=== PATIENT | female | born 1990 | race Caucasian/White ===

== ENCOUNTER 2023-06-06 14:55 | Outpatient (REF) | payer MEDICAID, SELFPAY ==
[2023-06-06 15:16] LABS: MANUAL DIFF FLAG NO
[2023-06-06 15:26] LABS: Basophils Percent Auto 0.5 % (0-2); Eosinophils Absolute Auto 0.3 X10*3/uL (0.0-0.4); Eosinophils Percent Auto 3.8 % (0-4); Hematocrit 41.8 % (37.0-47.0); Hemoglobin 14.1 g/dl (12.0-16.0); Imm Gran Abs Auto 0.01 X10*3/uL (0.00-0.03); Imm Gran Pct Auto 0.2 % (0.0-0.4); Lymphocytes Absolute Auto 2.2 X10*3/uL (1.2-4.9); Lymphocytes Percent Auto 33.8 % (20-40); Mean Corpuscular HGB Conc 33.7 g/dl (31.0-35.0); Mean Corpuscular Hemoglobin 32.1 pg (27.0-33.0); Mean Corpuscular Volume 95.2 fL (80.0-98.0); Mean Platelet Volume 9.5 fL (9.4-12.3); Monocytes Absolute Auto 0.5 X10*3/uL (0.1-1.2); Monocytes Percent Auto 7.2 % (2-11); Neutrophils Absolute Auto 3.5 x10*3/uL (2.0-8.3); Neutrophils Percent Auto 54.5 % (45-73); Platelet Count 283 X10*3/uL (160-400); Red Blood Count 4.39 X10*6/uL (4.20-5.50); Red Cell Distribution Width 11.9 % (11.0-16.0); White Blood Count 6.5 X10*3/uL (4.8-10.8)
[2023-06-06 15:48] LABS: Alanine Aminotransferase 14 U/L (0-31); Albumin Level 4.4 g/dL (3.5-5.0); Alkaline Phosphatase 43 U/L (39-117); Anion Gap 10 (12-20); Aspartate Amino Transferase 20 U/L (5-31); Bilirubin Total 0.3 mg/dL (0.0-1.0); Blood Urea Nitrogen 11 mg/dL (9-16); C Reactive Protein 0.32 mg/dL (< or = 0.50); Carbon Dioxide 26 mmol/L (22-29); Chloride 107 mmol/L (96-108); Estimated Glomerular Filt Rate > 60; Glucose Random 87 mg/dL (60-115); Potassium 4.1 mmol/L (3.3-5.1); Sodium 139 mmol/L (135-145); Total Protein 7.2 g/dL (6.5-8.0)
[2023-06-06 16:27] LABS: Erythrocyte Sedimentation Rate 7 MM/HR (0-20)
== END 2023-06-06 14:56 | disposition home or self-care (01) ==
LOC: HO.LAB 14:55
PROVIDERS: PCP Internal Medicine; Visit Provider Internal Medicine
DX: J30.1 Allergic rhinitis due to pollen (principal); M25.412 Effusion, left shoulder
CPT/HCPCS: 36415; 80053; 85025; 85652; 86140

== ENCOUNTER 2023-10-29 10:59 | Outpatient (REF) | payer OTHER, SELFPAY ==
--- NOTE | ~2023-10-29 | MM_ITS ---
EXAMINATION: MM DIAGNOSTIC DIGITAL BREAST TOMOSYNTHESIS, BILATERAL US BREAST LIMITED, LEFT MAMMOGRAPHY: CLINICAL INFORMATION: 33-year-old female complaining of Left breast pain, upper outer quadrant to lower outer quadrant, cyclical, resolved after menses. COMPARISON: Mammography: None. Baseline exam. TECHNIQUE: Digital breast tomosynthesis is performed in both the craniocaudal and mediolateral oblique views along with computer-aided detection (CAD). Synthesized 2D images are generated from the tomosynthesis. An added left 3-D MLO full-field view was obtained. FINDINGS: There are scattered areas of fibroglandular density (ACR BI-RADS breast composition Category b). There are no suspicious masses, suspicious grouped calcifications, or areas of architectural distortion in either breast. The parenchymal pattern is stable from prior exams. No mammographic abnormality evident in the left breast upper outer quadrant or lower outer quadrant in the regions of episodic breast pain. No skin or axillary abnormalities noted. ULTRASOUND: CLINICAL INFORMATION: As above. COMPARISON: None TECHNIQUE: Targeted sonographic evaluation was performed using a high frequency linear transducer. Attention was given to the upper outer quadrant and lower outer quadrant in the regions of breast pain. Selected archived documentation. FINDINGS: LEFT BREAST: There is a mixture of fatty and fibroglandular tissue. No suspicious mass is seen. There is no pathologic acoustic shadowing. There is no cystic abnormality. There is no axillary abnormality. No ultrasonographic correlate is present to the regions of breast pain. MM/MM tomosynthesis diagnostic BI IMPRESSION: No findings suspicious for malignancy in either breast. Regions of left breast pain show no mammographic or ultrasonographic correlate. Recommend clinical management of said symptoms. Otherwise, recommend beginning routine screening mammography at age 40. OVERALL ASSESSMENT: Mammography: BI-RADS 1 - Negative Ultrasound: BI-RADS 1 - Negative RECOMMENDATION: 1. Patient should be managed based on the clinical impression. 2. Otherwise, routine annual screening mammography beginning at age 40.
== END 2023-10-29 11:00 | disposition home or self-care (01) ==
LOC: HO.MAMMO 10:59
PROVIDERS: Visit Provider Internal Medicine
DX: N64.4 Mastodynia (principal)
CPT/HCPCS: 76642; 77062; 77066

== ENCOUNTER → 2023-10-29 11:00 | Outpatient (BNV) | payer OTHER, SELFPAY | PROVIDERS: Visit Provider Radiology Diagnostic Radiology | DX: N64.4 Mastodynia (principal) | CPT/HCPCS: 76642; 77062; 77066 ==

== ENCOUNTER 2025-06-02 13:07 | Outpatient (REF) | payer BC, SELFPAY ==
--- NOTE | ~2025-06-02 | XR_ITS ---
EXAMINATION: XR THORACIC SPINE CLINICAL INFORMATION: M54.6 - Pain in thoracic spine COMPARISON: None available. TECHNIQUE: AP lateral and swimmer's projections. FINDINGS: No acute cortical disruption or malalignment. Mild endplate sclerosis at multiple levels with decreased intervertebral disc height. No lytic or blastic lesions. Mild S-shaped curvature of the mid thoracic spine. XR/XR thoracic spine 3V IMPRESSION: Mild multilevel spondylosis and scoliosis. Electronically signed by: Dipak Lin MD 06/02/2025 02:30 PM EDT
--- OUTSIDE RECORDS SUMMARY | 2025-06-02 16:37 | XMS_ITS | Clinical Summary ---
Author Organization [facility] Address [address] [place] [id number] Phone Care Team Providers Care Vp Of Product Name Role Phone Leonel Messina MD Primary Care Provider Allergies No known active allergies Medications citalopram (CELEXA) 40 MG tablet Take 40 mg by mouth daily. 12/28/2021 Active traZODone (DESYREL) 50 MG tablet Take 50 mg by mouth nightly at bedtime. 12/28/2021 Active ibuprofen (ADVIL,MOTRIN) 800 MG tablet TAKE ONE TABLET BY MOUTH THREE TIMES A DAY NEEDED FOR PAIN 11/07/2021 Active cetirizine (ZYRTEC) 10 MG tablet Take 10 mg by mouth daily. Active Active Problems No known active problems Social History Tobacco Use Types Packs/Day Years Used Date Smoking Tobacco: Former Smokeless Tobacco: Never Education Answer Date Recorded Are you interested in more education? Not on sue e 01/19/2023 Are you concerned about learning? Not on file 01/19/2023 No 01/19/2023 No 01/19/2023 Digital Access Answer Date Recorded No 02/17/2023 No 02/17/2023 No 02/17/2023 Reliable internet access at home? Not on file 02/17/2023 Device with a working camera? Not on file Comments Unknown Sex and Gender Information Value Date Recorded Sex Assigned at Not on file Legal Sex Female 12:27 PM EDT Gender Identity Not on file Sexual Orientation Not on file Last Filed Vital Signs Vital Sign Reading Time Taken Comments Blood Pressure 124/82 01/17/2022 1:34 PM EDT Pulse 62 01/17/2022 1:34 PM EDT Temperature 36.9 C (98.4 F) 01/17/2022 1:34 PM EDT Respiratory Rate 20 01/17/2022 1:34 PM EDT Oxygen Saturation 100% 01/17/2022 1:34 PM EDT Inhaled Oxygen Concentration - - Weight 68.9 kg (152 lb) 01/17/2022 1:34 PM EDT Height 160 cm (5' 3 ) 01/17/2022 1:34 PM EDT Body Mass Index 26.93 01/17/2022 1:34 PM EDT Plan of Treatment Health Maintenance Due Date Last Done Comments DEPRESSION SCREENING 2001 SMOKING Hx and SMOKELESS TOBACCO SCREENING 2002 HEPATITIS C SCREENING 2007 HIV ONE-TIME SCREENING (18-6 5 YEARS) 2007 PAP SMEAR 2010 INFLUENZA VACCINE (#1) 2025 09/14/2017 COVID-19 VACCINE (3 2024-2 6 season) 2025 01/12/2021, 12/22/2020 Adult Td,Tdap Booster 05/10/2029 05/10/2019 HEPATITIS A VACCINES Aged Out No long er eligible based on patient's age to complete this topic HIB VACCINES Aged Out No longer eligi ble based on patient's age to complete this topic MENINGOCOCCAL VACCINES (ACWY) Aged Out No longer eligible based on patient's age to complete this topic MENINGOCOCCAL VACCINES (B) Aged Out N o longer eligible based on patient's age to complete this topic PNEUMOCOCCAL VACCINES (0-49 years) Aged Out No longer eligible b ased on patient's age to complete this topic Medical Devices Not on file Insurance [employer] [facility] [place] [facility] [place] [address] [place] [address] [place] [facility] [place] [id number] [place] [facility] Care Teams Vp Of Product Relationship Specialty Start Date End Date Leonel Messina MD [address] [place] [address] [place] [id number] PCP - General Internal Medicine 01/17/22 Additional Source Comments The information contained in this document represents components of the legal health record. It is not the complete legal health record.[facility]
== END 2025-06-02 13:08 | disposition home or self-care (01) ==
LOC: HO.XRAY 13:07
PROVIDERS: PCP Physician Assistant; Visit Provider Physician Assistant
DX: M54.6 Pain in thoracic spine (principal); N64.4 Mastodynia; G47.00 Insomnia, unspecified; H65.90 Unspecified nonsuppurative otitis media, unspecified ear
CPT/HCPCS: 72072

== ENCOUNTER 2025-06-02 13:07 | Outpatient (AMB) | payer BC, SELFPAY ==
--- NOTE | 2025-06-02 13:09 | MHC.PC.OV ---
Vital Signs 06/02/25 13:13 Height 5 ft 3 in Weight 92.079 kg BMI 36.0 BP 110/80 Blood Pressure Location Lt brachial Position Sitting Respiration 18 Pulse 76 Pulse Source Pulse Oximeter Temp 98.0 F Pulse Oximetry (%) 98 Oxygen Delivery Method Room Air Intake Visit Reasons: Mayuri - upper back pain, w/radiation Allergies No Known Allergies (No Known Allergies*) Allergy (Verified 06/02/25 13:10) Medication List - Last Reconciled 06/02/25 by KIRK Hernandez ketoconazole 2% 1 appl topical BID trazodone 50 mg PO BEDTIME PRN Tobacco use date assessed: 06/02/25 Dental Screening Did you have a dental visit in the last 12 months?: No HPI HPI Comments History of Present Illness Details 34-year-old female with history of insomnia presenting to the office today for evaluation and to establish care. Previously a patient of Dr. Messina, has not been seen in several years Insomia- trazodone prn Concerns: Upper back pain- ongoing 2 years. No inciting injury. Initially worsened, but now plateud. Reports 6/10 constant pain. Worsened by prolonged sitting possibly r/t posture. Hot shower helps to loosen, but temporary. No radiation. Not taking anything for this. Ear pressure/tightness in jaw/tinnitus- ongoing since beginning of this year. No overwhelming stress. Does clench her teeth, per dentist no evidence of this. Occ headaches. Occ otalgia bilaterally. No hearing issues. L breast pain- maternal great aunt breast cancer. No lumps, skin changes Health Maintenance: Looking for new referral to [facility]- last seen 5 years ago Colonoscopies age 44 Mammo ordered ROS: see hpi EXAM: Constitutional - Awake and Alert, No apparent distress Eyes - PERRL Ears- external ears normal, canals clear, TMs intact but retracted and aguilar Cardiovascular - S1S2, RRR, No edema Respiratory - Normal lung expansion, Normal respiratory effort, No respiratory distress, CTA bilaterally Breast- Pendulous with mildly erythema papules and some surrounding erythema under breasts. No masses or pain on exam. No skin changes. No nipple retraction or discharge Extremities - no calf tenderness bilaterally, no swelling MSK - no midline or paraspinal tenderness to palpation Skin - Warm/Dry Neurological - Alert & oriented x3 Psychological - Appropriate affect PFSH Medical History (Updated 06/02/25 @ 13:43 by KIRK Hernandez) Macromastia Thoracic back pain Insomnia Social History Housing: Apartment Patient Tobacco Use Status: Former Tobacco user Tobacco use type: Cigarette e-Cigarette/Vaping Use: Currently Using service: No Current occupational status: employed Current occupation: [employer] Questionnaire AUDIT C Alcohol Use Questionnaire (AUDIT-C) 1. How often do you have a drink containing alcohol?: 2-4 times a month 2. How many drinks containing alcohol do you have on a typical day when you are drinking?: 5 or 6 Total Score: 4 Physical exam (Primary Care) Vital Signs: Last Vital Signs Temp 98.0 F 06/02/25 13:13 Pulse 76 06/02/25 13:13 Resp 18 06/02/25 13:13 BP 110/80 06/02/25 13:13 Pulse Ox 98 06/02/25 13:13 Oxygen Delivery Method Room Air 06/02/25 13:13 BMI result Body Mass Index 36.0 Tobacco/Smoking Status: Tobacco use Status Tobacco use date assessed 06/02/25 06/02/25 13:16 Patient Tobacco Use Status Former Tobacco user 06/02/25 13:16 Tobacco use type Cigarette 06/02/25 13:16 e-Cigarette/Vaping Use Currently Using 06/02/25 13:16 Coding Level of Care Code New Pt Level 4 (94391) Diagnoses Insomnia G47.00 Thoracic back pain M54.6 Breast pain, left N64.4 Otitis media with effusion H65.90 Assessment & Plan Assessment & Plan (1) Insomnia: Code(s): G47.00 - Insomnia, unspecified Category: Medical Plan: Continue trazodone p.r.n. (2) Thoracic back pain: Code(s): M54.6 - Pain in thoracic spine Category: Medical Plan: XR of the thoracic spine ordered. Suspect this is related to posture/macromastia. Referred to physical therapy. Can discuss referral to breast surgery for reduction if no improvements (3) Breast pain, left: Code(s): N64.4 - Mastodynia Category: Medical Plan: Diagnostic mammogram and limited ultrasound ordered (4) Otitis media with effusion: Code(s): H65.90 - Unspecified nonsuppurative otitis media, unspecified ear Category: Medical Plan: No evidence of acute infection. Recommend decongestants and nasal sprays. Referred to ENT given chronicity Plan Follow-up in the office for annual physical exam. Ketoconazole prescribed for candidiasis Orders: Orders US breast LT limited Today N64.4 - Mastodynia XR thoracic spine 2V Today M54.6 - Pain in thoracic spine PT Evaluation and Treatment Today M54.6 - Pain in thoracic spine MM tomosynthesis diagnostic LT Today N64.4 - Mastodynia Referrals [facility] Referral G47.00 - Insomnia, unspecified, M54.6 - Pain in thoracic spine, N64.4 - Mastodynia, Z12.4 - Encounter for screening for malignant neoplasm of cervix Ear/Nose/Throat Referral H65.90 - Unspecified nonsuppurative otitis media, unspecified ear, H69.90 - Unspecified Eustachian tube disorder, unspecified ear, N64.4 - Mastodynia Medications: New ketoconazole 2% 1 appl topical BID 30 grams 0RF trazodone 50 mg PO BEDTIME PRN 90 tabs 1RF insomnia
[2025-06-02 13:13] VITALS: BP 110/80; PULSE 76; RESP 18; TEMP 36.7; O2SAT 98; BMI 36.0
== END 2025-06-02 14:01 | disposition home or self-care (01) ==
LOC: HO.HMCHD 13:08
PROVIDERS: Visit Provider Physician Assistant
DX: G47.00 Insomnia, unspecified (principal); M54.6 Pain in thoracic spine; N64.4 Mastodynia; H65.90 Unspecified nonsuppurative otitis media, unspecified ear

== ENCOUNTER → 2025-06-02 14:04 | Outpatient (BNV) | payer BC, SELFPAY | PROVIDERS: PCP Physician Assistant; Visit Provider Radiology Diagnostic Radiology | DX: M47.814 Spondylosis without myelopathy or radiculopathy, thoracic region (principal) | CPT/HCPCS: 72072 ==

== ENCOUNTER 2025-06-09 13:28 | Outpatient (REF) | payer BC, SELFPAY ==
--- NOTE | ~2025-06-09 | US_ITS ---
EXAMINATION(S): 1. MM DIAGNOSTIC DIGITAL BREAST TOMOSYNTHESIS, BILATERAL 2. Targeted ultrasound of the left breast CLINICAL INFORMATION: Reason for Exam-N64.4 - Mastodynia Hypertrophy of the breast. Left breast pain. According to the medical records, physical examination on June 02, 2025: No mass or pain on exam. COMPARISON: October 29, 2023 TECHNIQUE: Digital breast tomosynthesis is performed in both the mediolateral oblique and craniocaudal views along with computer-aided detection (CAD). Synthesized 2D images are generated from the tomosynthesis. FINDINGS: BREAST COMPOSITION: There are scattered areas of fibroglandular density (ACR BI-RADS breast composition Category b). RIGHT BREAST: No significant masses, suspicious calcifications or other abnormalities are seen. LEFT BREAST: No significant masses, suspicious calcifications or other abnormalities are seen. In particular, no suspicious mammographic findings adjacent to the triangular skin marker placed at the location of the focal pain (indicated by the patient) in the upper outer quadrant. Note that the location of the skin marker is similar to the one placed for the study on October 29, 2023. Targeted ultrasound of the left breast was performed at the location of the focal pain as indicated by the patient. The survey throughout the 1:00-3:00 axis did not reveal suspicious sonographic findings. US/US breast LT limited mamm only IMPRESSION: RIGHT BREAST: Negative, no mammographic evidence of malignancy. LEFT BREAST: Negative, no evidence of malignancy. In particular, no mammographic or sonographic abnormality to accounts for patient's palpable concern. Clinical follow-up is recommended. ASSESSMENT: BI-RADS 1 - Negative RECOMMENDATION: 1. Patient should be managed based on the clinical impression. 2. Otherwise, routine annual screening mammography. Results were provided to the patient at time of visit by the technologist. This patient's information was entered into a reminder system with a target due date for their next mammogram. Electronically signed by: Daina Broussard MD 06/09/2025 03:39 PM EDT
--- OUTSIDE RECORDS SUMMARY | 2025-06-09 17:26 | XMS_ITS | Clinical Summary ---
Author Organization [facility] Address [address] [place] [phone] Phone Care Team Providers Care Circulation Assistant Name Role Phone Leonel Messina MD Primary [...] topic Medical Devices Not on file Insurance [employer] [facility] [place] [facility] [place] [address] [place], [place] [address] [place] [facility] [place] [id number] [place] [facility] Care Teams Circulation Assistant Relationship Specialty Start Date End Date Leonel Messina MD [address] [place] [address] [place] [id number] PCP - General Internal Medicine 01/17/22 Additional Source Comments The information contained in this document represents components of the legal health record. It is not the complete legal health record.[facility]
== END 2025-06-09 13:29 | disposition home or self-care (01) ==
LOC: HO.MAMMO 13:28
PROVIDERS: PCP Physician Assistant; Visit Provider Physician Assistant
DX: N64.4 Mastodynia (principal)
CPT/HCPCS: 76642; 77062; 77066

== ENCOUNTER → 2025-06-09 13:30 | Outpatient (BNV) | payer BC, SELFPAY | PROVIDERS: PCP Physician Assistant; Visit Provider Radiology Body Imaging | DX: N64.4 Mastodynia (principal); N62 Hypertrophy of breast | CPT/HCPCS: 76642; 77062; 77066 ==

== ENCOUNTER 2025-06-22 08:06 | Outpatient (REF) | payer BC, SELFPAY ==
[2025-06-22 08:55] LABS: MANUAL DIFF FLAG NO
[2025-06-22 09:08] LABS: Hematocrit 39.4 % (37.0-47.0); Hemoglobin 13.5 g/dl (12.0-16.0); Imm Gran Abs Auto 0.01 X10*3/uL (0.00-0.03); Imm Gran Pct Auto 0.2 % (0.0-0.4); Lymphocytes Absolute Auto 1.8 X10*3/uL (1.2-4.9); Mean Corpuscular HGB Conc 34.3 g/dl (31.0-35.0); Mean Corpuscular Hemoglobin 32.6 pg (27.0-33.0); Mean Corpuscular Volume 95.2 fL (80.0-98.0); NRBC Abs Auto 0.000 X10*3/uL (0.0-0.012); NRBC Pct Auto 0.0 /100WBC (0.0-0.2); Platelet Count 268 X10*3/uL (160-400); Red Blood Count 4.14 X10*6/uL (4.20-5.50); White Blood Count 5.8 X10*3/uL (4.8-10.8)
--- OUTSIDE RECORDS SUMMARY | 2025-06-22 09:08 | XMS_ITS | Clinical Summary ---
Author Organization [facility] Address [address] [place] [phone] Phone Care Team Providers Care Engagement Engineer Name Role Phone Leonel Messina MD Primary [...] topic Medical Devices Not on file Insurance [employer] [facility] [place] [facility] [place] [address] [place] [address] [place] [facility] [place] [id number] [place] [facility] Care Teams Engagement Engineer Relationship Specialty Start Date End Date Leonel Messina MD [address] [place] [address] [place] [id number] PCP - General Internal Medicine 01/17/22 Additional Source Comments The information contained in this document represents components of the legal health record. It is not the complete legal health record.[facility]
[2025-06-22 09:45] LABS: Alanine Aminotransferase 43 U/L (0-31); Albumin Level 4.2 g/dL (3.5-5.0); Alkaline Phosphatase 62 U/L (39-117); Anion Gap 10 (12-20); Aspartate Amino Transferase 38 U/L (5-31); Blood Urea Nitrogen 11 mg/dL (9-16); Calcium 9.1 mg/dL (8.4-10.2); Carbon Dioxide 26 mmol/L (22-29); Chloride 108 mmol/L (96-108); Cholesterol 224 mg/dL (<200); Estimated Glomerular Filt Rate > 60; HDL Cholesterol 74 mg/dL (>40); Potassium 3.9 mmol/L (3.3-5.1); Sodium 140 mmol/L (135-145); Total Protein 6.5 g/dL (6.5-8.0); Triglycerides 139 mg/dL (<150)
== END 2025-06-22 08:07 | disposition home or self-care (01) ==
LOC: HO.LAB 08:06
PROVIDERS: PCP Physician Assistant; Visit Provider Physician Assistant
DX: Z00.00 Encounter for general adult medical examination without abnormal findings (principal); M54.6 Pain in thoracic spine; G47.00 Insomnia, unspecified; F10.90 Alcohol use, unspecified, uncomplicated
CPT/HCPCS: 36415; 80048; 80061; 80076; 83036; 84443; 85025; 96127

== ENCOUNTER 2025-06-22 08:06 | Outpatient (AMB) | payer BC, SELFPAY ==
--- NOTE | 2025-06-22 08:09 | A.OFFPC_ITS ---
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 She currently lives with her and stepdaughter in the apartment and feels safe there. 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 She does endorse occasionally drinking in excess, can at times have 5-7 drinks in a week but does also drink several drinks on other days of the week though not daily. No cigarette smoking. No illicit drug use. Reports occasional marijuana use. She does try to exercise, walks between [id number] steps in a day and also does weights. She reports she overall follows a healthy diet with whole foods but does occasionally eat unhealthy. Macromastia-resulting in thoracic back pain. She has been referred to physical therapy. She had also had been experiencing pain in the left breast at last visit. Diagnostic mammogram and Ultrasound of the left breast was negative without any evidence of malignancy, BI-RADS 1. Ear pressure/tightness in jaw/tinnitus- ongoing since beginning of this year. No overwhelming stress. Does clench her teeth, per dentist no evidence of this. Occ headaches. Occ otalgia bilaterally. No hearing issues. 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 No sore throat, nasal congestion, rhinorrhea, sinus pain, ear pain. No hearing loss Neck - no adenopathy Cardiovascular: No chest pain, palpitations, or leg edema Respiratory: No shortness of breath, wheezing, cough Breast: No pain, palpable lumps, nipple inversion GI: No dysphagia, odynophagia, globus sensation. No abdominal pain, nausea, vomiting, diarrhea, constipation, melena, hematochezia : No dysuria, hematuria, increased urinary frequency, decreased urinary output. 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 No AH/VH. No SI/HI Skin: No rashes or lesions EXAM: Constitutional - Awake and Alert, No apparent distress Eyes - PERRLA, EOMI. Anicteric Ears - external ears normal, canals clear, TMs intact and pearly ann with good cone of light Nose- septum midline, nares clear, no sinus tenderness Mouth/throat- mucosa moist, tongue and uvula midline, no erythema/edema or tonsillar adenopathy. Neck-trachea midline, thyroid symmetric without palpable nodules, no adenopathy Cardiovascular - S1S2, RRR, No edema Respiratory - Normal lung expansion, Normal respiratory effort, No respiratory distress, CTA bilaterally Gastrointestinal - NT / ND; +BS; No rebound or guarding - No CVA tenderness Extremities - no calf tenderness bilaterally, no swelling Musculoskeletal - Normal inspection, normal ROM Skin - Warm/Dry, no concerning lesions Neurological - Alert & oriented x3, CN II-XII in tact, 5/5 strength BUE and BLE, 2+ patellar reflexes, sensation intact Psychological - Appropriate affect [facility] Medical History (Updated 06/22/25 @ 08:48 by KIRK Hernandez) Alcohol use disorder Macromastia Thoracic back pain Insomnia Surgical History No pertinent past surgical history Family History Mother CAD (coronary artery disease) Lupus (systemic lupus erythematosus) Hypothyroidism Maternal Grandmother CAD (coronary artery disease) CHF (congestive heart failure) Social History Housing: Apartment Patient Tobacco Use Status: Former Tobacco user Tobacco use type: Cigarette e-Cigarette/Vaping Use: Currently Using service: No Current occupational status: employed Current occupation: [employer] Questionnaire PHQ-9 Over the last 2 weeks, how often have you been bothered by any of the following problems? 1. Little interest or pleasure in doing things: several days 2. Feeling down, depressed, or hopeless: not at all 3. Trouble falling or staying asleep, or sleeping too much: several days 4. Feeling tired or having little energy: not at all 5. Poor appetite or overeating: not at all 6. Feeling bad about yourself - or that you are a failure or have let yourself or your family down: several days 7. Trouble concentrating on things, such as reading the newspaper or watching television: several days 8. Moving or speaking so slowly that other people could have noticed. Or the opposite - being so fidgety or restless that you have been moving around a lot more than usual: not at all 9. Thoughts that you would be better off or of hurting yourself in some way: not at all Total score: 4 Depression Screening Interpretation: Negative Depression Screening Done: Yes 19820 - PHQ-9 Billing: Yes Source: Developed by Drs. Bud Dorsey, Rebekah Austin, Toney Saldaña and colleagues, with an educational darrius from [employer]. Thrive Questionnaire I am a: Patient What is your living situation today?: I choose not to answer this question Within the past 12 months, did the food you bought not last and you didn't have the money to get more?: Never true Within the past 12 months, did you worry whether your food would run out before you got money to buy more?: Never true Do you have trouble paying for medicines?: No Do you have trouble getting transportation to medical appointments?: No Do you have trouble taking care of your child, family member or friend?: No Do you have trouble with day-to-day activities such as bathing, preparing meals, shopping, managing finances, etc.?: No Are you currently unemployed and looking for a job?: No Are you interested in more education?: No Please select the resources that you would like help with: None Currently or been in a relationship where the following occur: No concerns reported THRIVE Score: 0 AUDIT C Alcohol Use Questionnaire (AUDIT-C) 1. How often do you have a drink containing alcohol?: 2-3 times a week 2. How many drinks containing alcohol do you have on a typical day when you are drinking?: 5 or 6 (some days) 3. How often do you have six or more drinks on one occasion?: Less than monthly Total Score: 6 Score Reviewed/Action Taken: Yes AYAD-7 AMB Questionnaire AYAD-7 Feeling nervous, anxious, or on edge: 1 = Several days Not being able to stop or control worryin = Several days Worrying too much about different things: 2 = More than half the days Trouble relaxin = Several days Being so restless that it is hard to sit still: 0 = Not at all Becoming easily annoyed or irritable: 1 = Several days Feeling afraid as if something awful might happen: 0 = Not at all Total AYAD-7 score (0-4 normal; 5-9 mild; 10-14 moderate; 15-21 severe): 6 Source: Developed by Drs. Bud Dorsey, Rebekah Austin, Toney Saldaña and colleagues, with an educational darrius from [employer]. AYAD-7 Assessment Billing AYAD-7 Assessment Tool: AYAD-7 Assessment 07681 Physical exam (Primary Care) Vital Signs: Last Vital Signs Temp 97.7 F 06/22/25 08:13 Pulse 82 06/22/25 08:13 Resp 14 06/22/25 08:13 BP 114/82 06/22/25 08:13 Pulse Ox 99 06/22/25 08:13 Oxygen Delivery Method Room Air 06/22/25 08:13 BMI result Body Mass Index 36.5 Tobacco/Smoking Status: Tobacco use Status Tobacco use date assessed 06/02/25 06/22/25 08:10 Patient Tobacco Use Status Former Tobacco user 06/22/25 08:10 Tobacco use type Cigarette 06/22/25 08:10 e-Cigarette/Vaping Use Currently Using 06/22/25 08:10 Depression Screening Interpretation: Negative Currently or been in a relationship where the following occur: No concerns reported Coding Level of Care Code Est Pt Prev Care 18-39y(45772) Diagnoses Routine medical exam Z00.00 Thoracic back pain M54.6 Insomnia G47.00 Alcohol use disorder F10.90 Additional Codes PHQ-9 - 21015 - PHQ-9 Billing: Yes ([id number]) AYAD-7 Assessment Billing - AYAD-7 Assessment Tool: AYAD-7 Assessment 67911 ([id number]) Assessment & Plan Assessment & Plan (1) Routine medical exam: Code(s): Z00.00 - Encounter for general adult medical examination without abnormal findings Category: Medical Plan: 35-year-old female presenting for annual physical exam. Plan as below (2) Thoracic back pain: Code(s): M54.6 - Pain in thoracic spine Category: Medical Plan: Referred for physical therapy. Analgesics as needed (3) Insomnia: Code(s): G47.00 - Insomnia, unspecified Category: Medical Plan: Continue trazodone as needed (4) Alcohol use disorder: Code(s): F10.90 - Alcohol use, unspecified, uncomplicated Category: Medical Plan: Trial naltrexone prn. Counseled on safe use Plan Routine screening labs as ordered below Continue with screening mammograms, Pap smears, colonoscopies Continue following for annual skin exams and use sun protection Annual eye exams Wear seat belt in car Recommend regular exercise and healthy diet Ayad 7 score 6-discussed with patient, will monitor Follow-up in 1 year Orders: Orders Basic Metabolic Panel Today Z00.00 - Encounter for general adult medical examination without abnormal findings Complete Blood Count Auto Diff Today Z00.00 - Encounter for general adult medical examination without abnormal findings Lipid Panel Today Z00.00 - Encounter for general adult medical examination without abnormal findings Liver Panel Today Z00.00 - Encounter for general adult medical examination without abnormal findings TSH reflex Free T4 Today Z00.00 - Encounter for general adult medical examination without abnormal findings PT Evaluation and Treatment Today M54.6 - Pain in thoracic spine Hemoglobin A1c Today Z00.00 - Encounter for general adult medical examination without abnormal findings Medications: New naltrexone 50 mg PO DAILY PRN 30 tabs 0RF alcohol cessation
[2025-06-22 08:13] VITALS: BP 114/82; PULSE 82; RESP 14; TEMP 36.5; O2SAT 99; BMI 36.5
== END 2025-06-22 09:36 | disposition home or self-care (01) ==
LOC: HO.HMCHD 08:06
PROVIDERS: PCP Physician Assistant; Visit Provider Physician Assistant
DX: Z00.00 Encounter for general adult medical examination without abnormal findings (principal); M54.6 Pain in thoracic spine; G47.00 Insomnia, unspecified; F10.90 Alcohol use, unspecified, uncomplicated